=== PATIENT | female | born 1985 | race Caucasian/White ===

== ENCOUNTER 2018-07-04 19:36 | Emergency (ER) | payer MEDICAID ==
[~2018-07-04] VITALS: Ht 162.6 cm; Wt 128.8 kg
[~2018-07-04 19:36] MED LIST: PRENCAP15
[2018-07-04 20:21] LABS: Urine Pregnacy Test Negative (Negative)
[2018-07-04 20:27] LABS: Alcohol, Urine < 3.0 mg/dL (0-5); Amphetamine Screen, Urine NEGATIVE (NEGATIVE); Barbiturate Scree,Urine NEGATIVE (NEGATIVE); Benzodiazephine Screen, Urine NEGATIVE (NEGATIVE); Cannabinoid Screen, Urine NEGATIVE (NEGATIVE); Cocaine Screen, Urine NEGATIVE (NEGATIVE); Opiate Scree,Urine NEGATIVE (NEGATIVE); Phencyclidine Screen, Urine NEGATIVE (NEGATIVE)
[2018-07-04 20:33] LABS: Urine Bacteria FEW /hpf (None Seen); Urine Blood Negative /uL (Negative); Urine Mucus FEW (None Seen); Urine Specific Gravity 1.025 (1.001-1.035); Urine WBC 2 /hpf (0 - 5)
[2018-07-04 21:20] LABS: Basophils # (auto) 0 uL; Basophils % (auto) 0.4 % (0.0-2.0); Eosinophils # (auto) 0.1 uL; Eosinophils % (auto) 1.4 % (0.0-7.0); Hematocrit 35.9 % (36.0-46.0); Hemoglobin 11.8 g/dL (12.2-16.2); Lymphocytes # (auto) 1.7 uL; Lymphocytes % (auto) 29.4 % (10.0-50.0); Mean Corpuscular Hemoglobin 27.3 pg (28.0-32.0); Mean Corpuscular Hgb Conc. 32.9 g/dL (32.0-36.0); Mean Corpuscular Volume 82.8 fL (80.0-100.0); Monocytes # (auto) 0.4 uL; Monocytes % (auto) 7.6 % (0.0-12.0); Neutrophils # (auto) 3.6 uL; Neutrophils % (auto) 61.2 % (37.0-80.0); Platelet Count (auto) 182 10^3/uL (140-450); Red Blood Cells 4.33 10^6/uL (4.0-5.20); Red Cell Distribution Width 14.2 % (11.8-14.3); White Blood Cell 5.9 10^3/uL (4.4-10.8)
[2018-07-04 21:37] LABS: Albumin 3.6 g/dL (3.4-5.0); BUN/Creatinine Ratio 17.9; Calcium 8.8 mg/dL (8.5-10.1); Potassium 3.7 mmol/L (3.5-5.1)
[2018-07-04 21:45] LABS: Bilirubin, Total 0.1 mg/dL (0.2-1.0); Total Protein 7.8 g/dL (6.4-8.2)
[2018-07-05] MEDS ORDERED: methylPREDNISolone SOD SUCC 125 MG/2 ML VL IV ONE (01:15)
[2018-07-05] MEDS ORDERED: ALBUTEROL SULF 2.5 MG/0.5ML(0.5%) NEB SOLN NEB ONE (04:45)
[2018-07-05] MEDS ORDERED: IPRATROPIUM BROM 0.5 MG/2.5ML INH SOL NEB ONE (04:45)
[2018-07-05 04:46] VITALS: BP 134/93
== END 2018-07-05 05:38 | disposition home or self-care (01) ==
LOC: ER 19:36
DX: J45.901 Unspecified asthma with (acute) exacerbation (principal)
CPT/HCPCS: 36415; 70450; 71046; 80053; 80307; 81001; 81025; 83880; 84484; 85025; 96374; 99285; J2930; J7611; J7644

== ENCOUNTER 2018-11-19 11:23 | Emergency (ER) | payer MEDICAID ==
[~2018-11-19] VITALS: Ht 162.6 cm; Wt 124.7 kg
[2018-11-19 11:36] VITALS: BP 121/72
[2018-11-19] MEDS ORDERED: HYDROcodone-ACET 10/325MG TAB PO ONE (15:45)
== END 2018-11-19 16:04 | disposition home or self-care (01) ==
LOC: ER 11:27
DX: G43.909 Migraine, unspecified, not intractable, without status migrainosus (principal); J45.909 Unspecified asthma, uncomplicated

== ENCOUNTER 2019-03-18 18:21 | Emergency (ER) | payer MEDICAID ==
[~2019-03-18] VITALS: Ht 162.6 cm; Wt 127.0 kg
[2019-03-18 19:23] LABS: Albumin 3.6 g/dL (3.4-5.0); Anion Gap 10 (5-15); Blood Urea Nitrogen 14 mg/dL (7-18); Calcium 8.3 mg/dL (8.5-10.1); Carbon Dioxide 22 mmol/L (21-32); Chloride 109 mmol/L (98-107); Glucose 85 mg/dL (74-106); Magnesium 2.2 mg/dL (1.6-2.6); Sodium 141 mmol/L (136-145)
[2019-03-18 19:25] LABS: Alanine Aminotransferase 19 U/L (13-56); Aspartate Aminotransferase 15 U/L (15-37); BUN/Creatinine Ratio 18.7; GFR African American 114 mL/min; GFR Non-African American 94 mL/min
[2019-03-18 19:30] LABS: Alkaline Phosphatase 83 U/L (45-117); Bilirubin, Total 0.1 mg/dL (0.2-1.0); Total Protein 7.7 g/dL (6.4-8.2)
[2019-03-18 20:00] LABS: Basophils # (auto) 0 uL; Basophils % (auto) 0.3 % (0.0-2.0); Eosinophils # (auto) 0.1 uL; Eosinophils % (auto) 1.3 % (0.0-7.0); Hematocrit 37.1 % (36.0-46.0); Hemoglobin 12.1 g/dL (12.2-16.2); Lymphocytes # (auto) 1.7 uL; Lymphocytes % (auto) 30.8 % (10.0-50.0); Mean Corpuscular Hemoglobin 27.3 pg (28.0-32.0); Mean Corpuscular Hgb Conc. 32.6 g/dL (32.0-36.0); Mean Corpuscular Volume 83.6 fL (80.0-100.0); Monocytes # (auto) 0.3 uL; Monocytes % (auto) 5.9 % (0.0-12.0); Neutrophils # (auto) 3.4 uL; Neutrophils % (auto) 61.7 % (37.0-80.0); Nucleated Red Blood Cells % 0.1 %; Platelet Count (auto) 177 10^3/uL (140-450); Red Blood Cells 4.43 10^6/uL (4.0-5.20); Red Cell Distribution Width 14.6 % (11.8-14.3); White Blood Cell 5.5 10^3/uL (4.4-10.8)
[2019-03-18 21:37] VITALS: BP 127/79
== END 2019-03-18 21:38 | disposition home or self-care (01) ==
LOC: ER 18:21
DX: R07.89 Other chest pain (principal); J45.909 Unspecified asthma, uncomplicated; K21.9 Gastro-esophageal reflux disease without esophagitis; Z79.899 Other long term (current) drug therapy
CPT/HCPCS: 36415; 71046; 80053; 83735; 84484; 85025; 93005

== ENCOUNTER 2019-10-04 13:36 | Emergency (ER) | payer MEDICAID ==
[~2019-10-04] VITALS: Ht 162.6 cm; Wt 124.3 kg
[2019-10-04 14:49] VITALS: BP 125/69
== END 2019-10-04 15:41 | disposition home or self-care (01) ==
LOC: ER 13:36
DX: S16.1XXA Strain of muscle, fascia and tendon at neck level, initial encounter (principal); K21.9 Gastro-esophageal reflux disease without esophagitis; J45.909 Unspecified asthma, uncomplicated; Z98.51 Tubal ligation status; X50.1XXA Overexertion from prolonged static or awkward postures, initial encounter; Y93.89 Activity, other specified; Y92.89 Other specified places as the place of occurrence of the external cause; Y99.8 Other external cause status
CPT/HCPCS: 72040

== ENCOUNTER 2019-12-02 12:09 | Emergency (ER) | payer MEDICAID ==
[~2019-12-02] VITALS: Ht 162.6 cm; Wt 117.9 kg
[2019-12-02 13:09] VITALS: BP 136/65
== END 2019-12-02 15:02 | disposition home or self-care (01) ==
LOC: ER 12:09 → EDUNIT# 12:09 → ER 15:02
DX: J02.9 Acute pharyngitis, unspecified (principal); R51 Headache; J45.909 Unspecified asthma, uncomplicated
CPT/HCPCS: 70490

== ENCOUNTER 2021-04-12 13:57 | Emergency (ER) | payer MEDICAID ==
[~2021-04-12] VITALS: Ht 162.6 cm; Wt 111.1 kg
[2021-04-12 15:13] LABS: Basophils # (auto) 0 10 ^3/uL (0-0.2); Eosinophils # (auto) 0.1 10 ^3/uL (0-0.8); Hemoglobin 11.1 g/dL (12.2-16.2); Lymphocytes # (auto) 1.2 10 ^3/uL (0.4-5.4); Mean Corpuscular Hemoglobin 26.8 pg (28.0-32.0); Mean Corpuscular Hgb Conc. 32.7 g/dL (32.0-36.0); Neutrophils # (auto) 2.7 10 ^3/uL (1.6-8.6); Red Blood Cells 4.13 10^6/uL (4.0-5.20)
[2021-04-12 15:14] LABS: Basophils % (auto) 0.4 % (0.0-2.0); Hematocrit 33.8 % (36.0-46.0); Lymphocytes % (auto) 27.5 % (10.0-50.0); Mean Corpuscular Volume 81.8 fL (80.0-100.0); Monocytes # (auto) 0.4 10 ^3/uL (0-1.3); Monocytes % (auto) 8.8 % (0.0-12.0); Neutrophils % (auto) 61.3 % (37.0-80.0); Red Cell Distribution Width 14.9 % (11.8-14.3); White Blood Cell 4.4 10^3/uL (4.4-10.8)
[2021-04-12 15:22] LABS: Albumin 3.7 g/dL (3.4-5.0); BUN/Creatinine Ratio 17.7; Calcium 8.1 mg/dL (8.5-10.1); Potassium 3.6 mmol/L (3.5-5.1)
[2021-04-12 15:25] LABS: Bilirubin, Total 0.2 mg/dL (0.2-1.0); Total Protein 7.3 g/dL (6.4-8.2)
[2021-04-12 15:53] LABS: Urine Bacteria FEW /hpf (None Seen); Urine Blood Negative /uL (Negative); Urine Hyaline Cast FEW /lpf (0 - 2); Urine Mucus FEW (None Seen); Urine Specific Gravity 1.022 (1.001-1.035); Urine WBC 3 /hpf (0 - 5)
[2021-04-12 19:31] VITALS: BP 108/73
== END 2021-04-12 21:34 | disposition left against medical advice (07) ==
LOC: ER 13:57
DX: R42 Dizziness and giddiness (principal); F41.9 Anxiety disorder, unspecified; R68.84 Jaw pain; J45.909 Unspecified asthma, uncomplicated
CPT/HCPCS: 36415; 80053; 81001; 83690; 84702; 85025; 93005

== ENCOUNTER 2022-01-29 20:36 | Emergency (ER) | payer MEDICAID ==
[~2022-01-29] VITALS: Ht 162.6 cm; Wt 110.2 kg
[2022-01-30 03:35] VITALS: BP 118/62
== END 2022-01-30 03:50 | disposition home or self-care (01) ==
LOC: ER 20:39
DX: S12.112A Nondisplaced Type II dens fracture, initial encounter for closed fracture (principal); S06.0X0A Concussion without loss of consciousness, initial encounter; J45.909 Unspecified asthma, uncomplicated; Z79.899 Other long term (current) drug therapy; Z20.822 Contact with and (suspected) exposure to COVID-19; W55.12XA Struck by horse, initial encounter; Y93.89 Activity, other specified; Y92.89 Other specified places as the place of occurrence of the external cause; Y99.8 Other external cause status
CPT/HCPCS: 36415; 70450; 72125